=== PATIENT | male | born 1995 | race Caucasian/White ===

== ENCOUNTER 2018-05-01 18:35 | Emergency (ER) | payer SELFPAY ==
[2018-05-01 18:46] VITALS: TEMP 98.3
[2018-05-01 19:30] LABS: BASO # 0.1 (0.0-0.2); BASO % 0.8 % (0.0-2.0); EOS # 0.5 (0.0-0.7); EOS % 5.9 % (0-4.0); GRAN % 69.1 % (42.2-75.2); HEMATOCRIT 41.1 % (42.0-52.0); HEMOGLOBIN 14.1 g/dl (13.5-18.0); LYMPH # 1.2 (1.2-3.4); LYMPH % 13.4 % (20.0-51.0); MEAN CELL VOLUME 89 fl (80.0-100.0); MEAN CORPUSCULAR HEMOGLOBIN 31 pg (27.0-31.0); MEAN CORPUSCULAR HGB CONC 34 g/dl (33.0-37.0); MEAN PLATELET VOLUME 10.1 fl (7.4-10.4); MONO # 0.9 (0.1-0.6); MONO % 10.3 % (1.7-9.3); PLATELET COUNT 221 K/mm3 (130-400); REDCELL DISTRIBUTION WIDTH-CV 12.3 % (11.5-14.5)
[2018-05-01 19:40] LABS: BILIRUBIN,TOTAL 0.7 mg/dL (0.0-1.0); CALCIUM 8.9 mg/dL (8.4-10.2); CREATININE, serum 0.68 mg/dL (0.66-1.25); POTASSIUM 3.7 mmol/L (3.4-5.0)
[2018-05-01 19:54] LABS: C-REACTIVE PROTEIN 1.9 mg/dL (0.0-0.9)
[2018-05-01] MEDS ORDERED: AMOXICILLIN 8751 TAB PO (20:03)
[2018-05-01 20:12] VITALS: BP 131/80; PULSE 79
== END 2018-05-01 20:14 | disposition home or self-care (01) ==
LOC: COL.ER 18:35
PROVIDERS: Physician Assistant
DX: K08.89 Other specified disorders of teeth and supporting structures (principal); F17.210 Nicotine dependence, cigarettes, uncomplicated
CPT/HCPCS: J2405; J7030